=== PATIENT | male | born 1950 | race Caucasian/White ===

== ENCOUNTER 2016-08-05 00:48 | Inpatient (IN) | payer MEDICARE, MEDICAID ==
--- NOTE | 2016-08-05 01:02 | EDPRACDOC ---
- General Information Stated Complaint: RT EYE HEMORRHAGE Time Seen by Provider: 08/05/16 01:00 Information Source: Tissue Technician Mode Of Arrival: Ambulance Home Medications: Home Medications Albuterol Sulfate [Proair Hfa] 2 puff INH Q6H PRN 10/20/13 Paroxetine [Paxil] 20 mg PO BID 10/20/13 Lisinopril [Zestril] 5 mg PO HS 11/12/14 MetFORMIN (Immediate Release) [GLUCOPHAGE Immed Release] 1,000 mg PO BID(YOSEF) Metoprolol Tartrate [Lopressor] 25 mg PO BID 11/12/14 Glimepiride [Amaryl] 2 mg PO DAILY 11/25/15 Montelukast Sodium [Singulair] 10 mg PO DAILY 11/25/15 Ropinirole HCl [Requip] 0.5 mg PO TID 11/25/15 Alprazolam [Xanax] 0.5 mg PO Q6H PRN #120 tablet 11/30/15 Pregabalin [Lyrica] 100 mg PO TID #90 capsule 11/30/15 Potassium Chloride 20 meq PO DAILY #90 tablet.er 01/17/16 Acetaminophen Ex Str Tablet [TYLENOL EXTRA STRENGTH Tablet] 500 mg PO QAM Acetaminophen [Tylenol] 650 mg PO Q6H PRN 05/30/16 Albuterol Sulfate [Ventolin Hfa] 2 puff INH BID PRN 05/30/16 Albuterol/Ipratropium Neb [Duoneb] 3 ml NEB QID 05/30/16 Crotamiton [Eurax] 60 gm TP BID 05/30/16 Fexofenadine HCl [Roz] 180 mg PO DAILY 05/30/16 Guaifenesin [Robitussin] 200 mg PO BID PRN 05/30/16 Polyethylene Glycol 3350 [Miralax] 17 gm PO BID 05/30/16 Tobramycin/Dexamethasone [Tobradex] 2 drop OU QID 05/30/16 Trazodone HCl [Desyrel] 50 mg PO QHS 05/30/16 Aspirin (Enteric Coated) [Halfprin] 81 mg PO DAILY #90 tab 06/03/16 Furosemide [Lasix] 40 mg PO BID #120 tab 06/03/16 Levofloxacin [Levaquin] 750 mg PO DAILY #5 tablet 06/03/16 Prednisone 10 mg PO DAILY #30 tab.ds.pk 06/03/16 Allergies/Adverse Reactions: Allergies Allergy/AdvReac Type Severity Reaction Status Date / Time varenicline tartrate Allergy Intermediate Angioedema* Verified 05/30/16 16:36 [From Chantix] - History of Present Illness Exact Onset of Symptoms: Unknown HPI: EMS CALLED TO [facility] FOR RIGHT EYE BLEEDING. FALL A COUPLE OF WEEKS AGO, TOLD BLOOD BLISTER OF EYE THEN. EMS FOUND PT LETHARGIC. ON 3L NC USUALLY, BUT DUE TO CONFUSION OXYGEN INCREASED TO 6 L NC. ED Past Medical History - History Reviewed Yes Nurses notes reviewed and agree except as marked - Patient Medical History Cardiac History: Reports: Hypertension, Hypercholesterolemia. Denies: Congestive Heart Failure Respiratory History: Reports: COPD (Severe. On home O2.), Emphysema GI/ History: Reports: Gastroesophageal Reflux Musculoskeletal History: Reports: Arthritis Psychological History: Reports: Anxiety. Denies: Depression, Substance Use Disorder Systemic History: Reports: Diabetes (Type 2) Surgical History: Reports: Other (LEFT HAND, INTESTINES?) - Family Medical History Reports: Hypertension, Diabetes (father), Cancer (Brother) - Social Medical History Smoking Status: Heavy tobacco smoker (5 or more cigarettes/day or daily pipe/ cigar) Social History: Denies: Substance Use Disorder - Physical Exam Constitutional: Alert (Awake), No apparent distress Oriented to: Time, Person, Place Last recorded Vital Signs: Oxygen Pulse Oxygen Saturation O2 Device Oxygen Flow Rate Fraction of Inspired Oxygen ( FIO2) - HEENT Head: Normal ( normocephalic) Eye Exam: Normal (PERRL, EOMI, Sclera white), Other (RIGHT EYE ABLE TO FINGER COUNT. SOME DRIED BLOOD AROUND EYE. NO SOURCE OF BLEEDING IDENTIFIED.) Oropharynx: Normal (Pharynx:Moist without exudate,Gums-no swelling) Nose: No Symptoms Reported (septum midline) Neck: Normal (FROM, trachea at midline) - Respiratory/Cardiovascular Respiratory: Rhonchi, Wheezes (B/L) Cardiovascular: Normal (RRR without murmur, gallop or rub) - GI Auscultation: Normal (NABS) Palpation: Normal (Soft,No rebound or guarding, non distended) Tenderness: Non tender Rao's Sign: Negative - Musculoskeletal Back: Normal (Non-Tender) Extremities: Normal (Normal tone, Pulses 2+ No cyanosis or edema, FROM) - Integumentary Skin: Normal, Warm, Dry Lymphatics: Normal (no adenopathy) - Neurologic Memory Impaired: Normal Motor Function: Normal (Normal tone, Pulses 2+ No cyanosis or edema, FROM) Cranial Nerve: Normal (CN II-X11 intact sensation, strength 5/5) Cerebellar: Normal Mood Description: Normal Perception: Normal - Results 08/05/16 01:05 08/05/16 01:05 - EKG EKG #1 EKG Time: 01:06 -: Yes EKG interpreted by me Rate: bpm: 65 [place]: LAD Rhythm: NSR Block: RBBB (INCOMPLETE) ST: Normal Comments: ABNORMAL EKG Comparison: 05/30/16 (NO CHANGE) - Departure Yes I personally saw and evaluated the patient. Disposition: Admit IP To This Hospital Condition: Stable Final Diagnosis: Acute hypercapnic respiratory failure Altered mental state Qualifiers: Altered mental status type: disorientation Qualified Code(s): R41.0 - Disorientation, unspecified Bilateral pneumonia Qualifiers: Pneumonia type: due to unspecified organism Lung location: lower lobe of lung Qualified Code(s): J18.9 - Pneumonia, unspecified organism Decision to Admit Time: 02:16 Decision to admit date: 08/05/16 Decision to admit: from ED - Physician Consulted Hospitalist Time Called: 02:16 Provider Called: Sisi Russell Time Visiting Professor Returned Call: 02:16
[2016-08-05 01:13] LABS: ABG Draw Site Right Radial; ALLEN'S TEST PASS; BEb 9.6 (+/- 2); TCO2 40.5 MMOL/L (23-27)
[2016-08-05 01:14] LABS: ABG Draw Tech BKL
[2016-08-05 01:34] LABS: AUTOMATED EOSINOPHIL 3.2 % (0-5); AUTOMATED LYMPH 26.4 % (17-44); AUTOMATED MONOCYTE 9.1 % (3-10); AUTOMATED NEUTROPHIL 60.3 % (45-76); MPV 8.3 fL (7.4-10.4)
[2016-08-05] MEDS ORDERED: ALBUTEROL 0.083% 3 ML NEB NEB ONE (01:34)
[2016-08-05 01:39] LABS: BLOOD UREA NITROGEN 16 MG/DL (9-20); CALC CORRECTED 9.6 MG/DL (8.4-10.2); CALCIUM 9.1 MG/DL (8.4-10.2); CALCULATED OSMOLALITY 282 MOs/Kg (270-290); CHLORIDE 98 mEq/L (98-107); GLUCOSE 132 MG/DL (70-99); SODIUM LEVEL 145 mEq/L (137-146); TOTAL PROTEIN 6.5 G/DL (6.3-8.2)
--- NOTE | 2016-08-05 02:07 | DIRPT ---
CLINICAL DATA: Acute onset of altered mental status. Status post fall. Lethargy and shortness of breath. Initial encounter. EXAM: PORTABLE CHEST 1 VIEW COMPARISON: Chest radiograph performed 06/02/2016 FINDINGS: The lungs are well-aerated. Mild bibasilar opacities may reflect mild interstitial edema or pneumonia. Vascular congestion is noted. There is no evidence of significant pleural effusion or pneumothorax. The cardiomediastinal silhouette is enlarged. No acute osseous abnormalities are seen. Chronic right clavicular deformity is noted. IMPRESSION: Vascular congestion and cardiomegaly. Mild bibasilar opacities may reflect mild interstitial edema or pneumonia. Electronically Signed By: Héctor Au M.D. On: 08/05/2016 02:04
[2016-08-05 02:12] LABS: LEUKOCYTES/URINE NEG (NEGATIVE); NITRITE/URINE NEG (NEGATIVE); RBC/URINE 0-2 (0-2); URINE OCCULT BLOOD NEG (NEG/TRACE); WBC/URINE 0-2 (0-2)
[2016-08-05] MEDS ORDERED: PIPERACILLIN AND TAZOBACTAM 4.5 GM in D5W 100 ML IV ONE (02:13)
[2016-08-05] MEDS ORDERED: Levofloxacin 750 mg/150 ml D5W 750 MG/150 ML RTU IV ONE (02:14)
[2016-08-05] MEDS ORDERED: ACETAMINOPHEN 325 MG/TAB TABLET PO PRN (03:50)
[2016-08-05] MEDS ORDERED: GLUCOSE (ORAL GEL) 15 GM TUBE PO PRN (03:50)
[2016-08-05] MEDS ORDERED: Aluminum;Magnesium;Simethicone 30 ML UDC PO PRN (03:50)
[2016-08-05] MEDS ORDERED: BENZONATATE 100 MG PERLES PO PRN (03:50)
[2016-08-05] MEDS ORDERED: MAGNESIUM HYDROXIDE 30 ML BOTTLE PO PRN (03:50)
[2016-08-05] MEDS ORDERED: DEXTROSE 25 GM/50 ML PFS IV PRN (03:50)
[2016-08-05] MEDS ORDERED: TUSSIONEX 5 ML ORAL SYRINGE PO PRN (03:50)
[2016-08-05] MEDS ORDERED: GLUCAGON 1 MG VIAL SQ PRN (03:50)
[2016-08-05] MEDS ORDERED: PROMETHAZINE 25 MG/ML VIAL IV PRN (03:50)
[2016-08-05] MEDS ORDERED: SODIUM CHLORIDE 0.9% 3 ML FLUSH FLUSH PRN (03:50)
[2016-08-05] MEDS ORDERED: ALBUTEROL 0.083% 3 ML NEB NEB PRN (03:50)
--- NOTE | 2016-08-05 03:59 | HISTPHYS ---
- Chief Complaint Patient brought in by EMS due to blood blister on eye. - History of Present Illness 65-year-old man long history of CHRONIC OBSTRUCTIVE PULMONARY DISEASE with his 5th admission in 12 months for CHRONIC OBSTRUCTIVE PULMONARY DISEASE exacerbation presents to the emergency department. He was picked up by EMS at [facility] and his sats were noted to be in the low 80s on 3 L. His oxygen was turned up to 6 L and the patient is a CO2 retainer. On presentation here he was requiring BiPAP treatment. At the present time he is unconscious in's and not able to give any information. He is a do not resuscitate. There is an order in the chart that he is palliative care and should not go to the hospital yet here he is. - Medical History Cardiac History: Reports: Hypertension, Hypercholesterolemia. Denies: Congestive Heart Failure Respiratory History: Reports: COPD (Severe. On home O2.), Emphysema GI/ History: Reports: Gastroesophageal Reflux Musculoskeletal History: Reports: Arthritis Systemic History: Reports: Diabetes (Type 2) Psychological History: Reports: Anxiety. Denies: Depression, Substance Use Disorder - Surgical History Reports: Other (LEFT HAND, INTESTINES?) - Medictions/Allergies Allergies varenicline tartrate [From Chantix] Allergy (Intermediate, Verified 08/05/16 03: 01) Angioedema* Current Medication List: Reviewed Home Medications Acetaminophen 500 mg PO QAM 08/05/16 Acetaminophen [Arthritis Pain] 650 mg PO QID PRN 08/05/16 Albuterol/Ipratropium Neb [Duoneb] 3 ml NEB QID 08/05/16 Alprazolam [Xanax] 0.5 mg PO BID 08/05/16 Aspirin (Enteric Coated) [Ecotrin] 81 mg PO DAILY 08/05/16 Crotamiton [Eurax] 60 gm TP BID 08/05/16 Fexofenadine HCl [Roz] 180 mg PO DAILY 08/05/16 Furosemide [Lasix] 20 mg PO DAILY 08/05/16 Glimepiride [Amaryl] 2 mg PO DAILY 08/05/16 Guaifenesin 600 mg PO BID PRN 08/05/16 Guaifenesin [Humabid, Mucinex] 600 mg PO BID 08/05/16 Lisinopril 2.5 mg PO DAILY 08/05/16 Metformin HCl 1,000 mg PO BID 08/05/16 Metoprolol Tartrate 12.5 mg PO BID 08/05/16 Montelukast Sodium [Singulair] 10 mg PO DAILY 08/05/16 Morphine Sulfate/Pf [Morphine 0.5 mg/ml Ampul P-F] 0.5 mg PO BID 08/05/16 PEG-Electrolytes (Miralax) [Miralax] 17 gm PO BID 08/05/16 POTASSIUM CHLORIDE Tablet [Klor-Con M20] 20 meq PO DAILY 08/05/16 Paroxetine HCl [Paxil] 20 mg PO BID 08/05/16 Pregabalin [Lyrica] 100 mg PO TID 08/05/16 Ropinirole HCl [Requip] 0.5 mg PO TID 08/05/16 Tobramycin/Dexamethasone [Tobradex] 1 drops OD BID 08/05/16 Trazodone HCl [Desyrel] 50 mg PO QHS 08/05/16 - Family History Reports: Hypertension, Diabetes (father), Cancer (Brother) - Social History Travel Outside of [place] in the Last 3 Months?: No Lives: in [facility] Smoking Status: Heavy tobacco smoker (5 or more cigarettes/day or daily pipe/ cigar) Social History: Denies: Alcohol Use, Substance Use Disorder - Review of Systems Yes Review of systems cannot be obtained due to the patient's medical condition - Physical Exam Vital Signs: Initial Vitals Pulse Rate 66 08/05/16 00:55 Respiratory Rate 22 08/05/16 00:55 Blood Pressure 108/55 L 08/05/16 00:55 Pulse Oxygen Saturation 94 08/05/16 00:55 Constitutional: Somnolent (Comatose). negative: Well nourished, Well appearing Oriented to: Time, Person, Place - HEENT Head: Normal (normocephalic, atraumatic.), Other (No cervical lymphadenopathy. No supraclavicular lymphadenopathy. Neck: No palpable mass, supple , trachea midline.) Eye: Other (Blood blister on right eye with injection of eyelids) Oropharynx: Normal (Pharynx: Moist without exudate,Gums-no swelling, No oropharyngeal lesions or erythema, Mucous membranes are dry.) Nose: No Symptoms Reported (septum midline, Nares patent, without discharge or bleeding.) Respiratory: Diminished, Rales, Wheezes Cardiovascular: Normal (RRR , Normal S1, S2. No murmurs, rubs, or gallops. PMI non-displaced. Carotids: no carotid bruits. No bradycardia or tachycardia. DP pulses 2+ bilaterally.) - GI Auscultation: Normal (normal active sounds) Palpation: Other (Super morbidly obese) Tenderness: Non tender (No rebound or guarding) - Musculoskeletal Back: Normal (Non-Tender) Extremities: Edema - Integumentary Skin: Normal (Clean, dry, and intact. No rashes. No lesions.) Lymphatics: Normal (No cervical lymphadenopathy. No supraclavicular lymphadenopathy.) - Neurologic Memory Impaired: Unable to Test Motor Function: Unable to Test Cranial Nerve: Unable to Test Cerebellar: Unable to Test Mood Description: Other (Comatose) - Focused CV Perfusion Exam Vital Signs: Last Vital Signs Temp Pulse 65 08/05/16 02:47 Resp 20 08/05/16 02:47 BP 117/68 08/05/16 02:47 Pulse Ox 92 08/05/16 02:47 - Lab Results Laboratory Results - last 24 hr 08/05/16 08/05/16 08/05/16 01:05 01:05 01:05 WBC 6.9 RBC 4.53 L Hgb 14.5 Hct 43.1 MCV 95 H MCH 32.0 MCHC 33.6 RDW 14.9 H Plt Count 144 MPV 8.3 Neut % (Auto) 60.3 Lymph % (Auto) 26.4 Rice % (Auto) 9.1 Eos % (Auto) 3.2 Baso % (Auto) 1.0 Absolute Neuts (auto) 4.14 Absolute Lymphs (auto) 1.79 PT INR APTT Puncture Site Right radial pH 7.340 L pCO2 71.0 H* pO2 70.0 L HCO3 38.3 H Total CO2 40.5 H Base Excess 9.6 H FiO2 % 3 lpm Specimen Drawn By Bkl Sodium 145 Potassium 4.0 Chloride 98 Carbon Dioxide 39 H Anion Gap 12 BUN 16 Creatinine 0.80 Estimated GFR (MDRD) > 60 Glucose 132 H Calculated Osmolality 282 Calcium 9.1 Corrected Calcium 9.6 Total Bilirubin 0.4 AST 16 L ALT 27 Alkaline Phosphatase 78 Troponin I < 0.01 Yme-H-Xcxaqqwyhni Pept 101 Total Protein 6.5 Albumin 3.5 Urine Color Urine Clarity Urine pH Ur Specific [place] Urine Protein Urine Glucose (UA) Urine Ketones Urine Occult Blood Urine Nitrite Urine Bilirubin Urine Urobilinogen Ur Leukocyte Esterase Urine RBC Urine WBC Ur Epithelial Cells Urine Bacteria Urine Mucus 08/05/16 08/05/16 01:05 01:52 WBC RBC Hgb Hct MCV MCH MCHC RDW Plt Count MPV Neut % (Auto) Lymph % (Auto) Rice % (Auto) Eos % (Auto) Baso % (Auto) Absolute Neuts (auto) Absolute Lymphs (auto) PT 10.7 INR 1.0 APTT 24.0 Puncture Site pH pCO2 pO2 HCO3 Total CO2 Base Excess FiO2 % Specimen Drawn By Sodium Potassium Chloride Carbon Dioxide Anion Gap BUN Creatinine Estimated GFR (MDRD) Glucose Calculated Osmolality Calcium Corrected Calcium Total Bilirubin AST ALT Alkaline Phosphatase Troponin I Etm-U-Yvmenttevxy Pept Total Protein Albumin Urine Color Yellow Urine Clarity Clear Urine pH 5.0 Ur Specific [place] 1.010 Urine Protein Neg Urine Glucose (UA) Neg Urine Ketones Neg Urine Occult Blood Neg Urine Nitrite Neg Urine Bilirubin Neg Urine Urobilinogen 2 H Ur Leukocyte Esterase Neg Urine RBC 0-2 Urine WBC 0-2 Ur Epithelial Cells Occ Urine Bacteria Few Urine Mucus Occ - Diagnostic Findings Echocardiogram 07/11/15 CONCLUSIONS 1. This was a technically difficult study with suboptimal views due to COPD. Patient chose not to use Definity echo contrast. 2. There is moderate concentric left ventricular hypertrophy. 3. Overall left ventricular systolic function is normal with, an EF between 60 - 65 %. 4. The diastolic filling pattern indicates impaired relaxation. 5. The right ventricle is severely enlarged. Electronically Signed By: Nik Denny MD -- Electronically Signed On: 14:25:11 CC: 07/11/15 1426 PORTABLE CHEST 1 VIEW COMPARISON: Chest radiograph performed 06/02/2016 FINDINGS: The lungs are well-aerated. Mild bibasilar opacities may reflect mild interstitial edema or pneumonia. Vascular congestion is noted. There is no evidence of significant pleural effusion or pneumothorax. The cardiomediastinal silhouette is enlarged. No acute osseous abnormalities are seen. Chronic right clavicular deformity is noted. IMPRESSION: Vascular congestion and cardiomegaly. Mild bibasilar opacities may reflect mild interstitial edema or pneumonia. Electronically Signed By: Héctor Au M.D. On: 08/05/2016 02:04 EKG #1 EKG Time: 01:06 -: Yes EKG interpreted by me Rate: bpm: 65 [place]: LAD Rhythm: NSR Block: RBBB (INCOMPLETE) ST: Normal Comments: ABNORMAL EKG Comparison: 05/30/16 (NO CHANGE) personally veiwed by me - Assessment (1) Acute hypercapnic respiratory failure J96.02 - ACUTE RESPIRATORY FAILURE WITH HYPERCAPNIA Acute Present on Admission: Yes Admit for hypercarbic respiratory failure. Continue treatment with BiPAP. Monitor CO2 levels closely. (2) HCAP (healthcare-associated pneumonia) J18.9 - PNEUMONIA, UNSPECIFIED ORGANISM Acute Present on Admission: Yes Patient started on IV antibiotics and supplemental oxygen at low dose. His home oxygen dose is 3 L. being treated for suspected gram-negative pneumonia due to healthcare environment and multiple admissions to the hospital in the past year for respiratory problems. (3) Bilateral pneumonia J18.9 - PNEUMONIA, UNSPECIFIED ORGANISM Acute Present on Admission: Yes Qualifiers: Pneumonia type: due to unspecified organism Lung location: lower lobe of lung Qualified Code(s): J18.9 - Pneumonia, unspecified organism Likely bilateral gram-negative healthcare associated pneumonia. Continue treatment with Zosyn and Levaquin. (4) COPD with acute exacerbation J44.1 - CHRONIC OBSTRUCTIVE PULMONARY DISEASE W (ACUTE) EXACERBATION Acute Present on Admission: Yes Patient with acute hypercarbia due to long-standing CHRONIC OBSTRUCTIVE PULMONARY DISEASE and obstructive sleep apnea. (5) Diastolic CHF, acute on chronic I50.33 - ACUTE ON CHRONIC DIASTOLIC (CONGESTIVE) HEART FAILURE Acute Present on Admission: Yes Currently NPO except for meds will continue present care and check echocardiogram. Last echo is greater than a year ago (6) JEY (obstructive sleep apnea) G47.33 - OBSTRUCTIVE SLEEP APNEA (ADULT) (PEDIATRIC) Chronic Present on Admission: Yes Continue BiPAP (7) Comatose R40.20 - UNSPECIFIED COMA Acute Present on Admission: Yes Qualifiers: Coma depth: unspecified coma depth Coma timing: at hospital admission Qualified Code(s): R40.2443 - Other coma, without documented [place] coma scale score, or with partial score reported, at hospital admission Likely due to hypercarbic respiratory failure and obesity hypoventilation syndrome continue BiPAP treatment and get CO2 levels down. (8) Morbid obesity E66.01 - MORBID (SEVERE) OBESITY DUE TO EXCESS CALORIES Chronic Present on Admission: Yes Qualifiers: Obesity type: due to excess calories Qualified Code(s): E66.01 - Morbid ( severe) obesity due to excess calories Patient is morbidly obese. Encourage weight loss, this certainly exacerbated his obstructive sleep apnea and diabetes. (9) Type 2 diabetes mellitus treated without insulin E11.9 - TYPE 2 DIABETES MELLITUS WITHOUT COMPLICATIONS Chronic Present on Admission: Yes Check fingerstick blood glucoses q.6 hours while NPO and cover with sliding scale insulin treatments. - Plan Admit, BiPAP, get oxygen levels low. Chest x-ray consistent with congestive heart failure as is physical exam. Patient's BMP does not reflect congestive heart failure but he clearly has some diastolic issues. Start on Lasix q.12 hours. Due to the presence of and/or the risk of deterioration, my attendance to this patient required critical care time, including assessment/reassessment, documentation, ordering and interpreting ancillary studies, discussion with staff and consultants,patient and family, and excludes time spent on separately billable procedures. In summary, this patient is acutely and critically ill. The patient requires treatment of vital organ failure and measures to prevent further life-threatening deterioration of condition. Case Care Discussed with: Consultants (Dr. Fairbanks), Nursing Staff Total Time: 80 minutes Critical Care: Yes Couseling Time (>50% in counseling/coordination): No
[2016-08-05] MEDS ORDERED: TOBRAMYCIN OU SCH (04:00)
[2016-08-05] MEDS ORDERED: ENOXAPARIN 40 MG/0.4 ML PFS SQ SCH (04:00)
[2016-08-05] MEDS ORDERED: DEXAMETHASONE OU SCH (04:00)
[2016-08-05] MEDS: NS/KCl 20 mEq 1,000 ML IV SCH ×3 (04:54→20:13)
[2016-08-05] MEDS ORDERED: AZITHROMYCIN 500 MG in D5W 250 ML IV SCH (05:00)
[2016-08-05] MEDS: SODIUM CHLORIDE 0.9% 3 ML FLUSH FLUSH SCH ×2 (05:03→18:18)
[2016-08-05] MEDS: ROPINIROLE HCL 0.5 MG TABLET PO SCH ×3 (05:03→20:16)
[2016-08-05] MEDS: PREGABALIN 100 MG CAP PO SCH ×3 (05:03→20:13)
[2016-08-05] MEDS: GLIMEPIRIDE 2 MG TAB PO SCH (05:04)
[2016-08-05] MEDS: MetFORMIN 1000 MG IMMED REL TAB PO SCH ×2 (05:04→16:36)
[2016-08-05] MEDS: METHYLPREDNISOLONE 125 MG/2 ML VIAL IV SCH ×4 (05:07→23:09)
[2016-08-05] MEDS: REGULAR INSULIN 100 UNITS/ML - 3 ML VIAL SQ SCH ×3 (05:10→16:36)
[2016-08-05 05:11] LABS: ALLEN'S TEST PASS; BEb 8.3 (+/- 2)
[2016-08-05] MEDS: DEXAMETHASONE OU SCH ×5 (05:11→22:30)
[2016-08-05] MEDS: TOBRAMYCIN OU SCH ×5 (05:11→22:30)
[2016-08-05 05:12] LABS: ABG Draw Site Right Radial
[2016-08-05 05:13] LABS: ABG Draw Tech BKL
[2016-08-05] MEDS ORDERED: Vaccine Screening Complete SCH (06:00)
[2016-08-05] MEDS ORDERED: CEFTRIAXONE 1 GM in D5W 100 ML IV SCH (06:00)
[2016-08-05] MEDS ORDERED: ACETAMINOPHEN 500 MG PO SCH (09:00)
[2016-08-05] MEDS ORDERED: CROTAMITON TP SCH (09:00)
[2016-08-05] MEDS: Albuterol/Ipratropium Neb 3 ML NEB NEB SCH ×3 (09:08→20:06)
[2016-08-05 09:10] LABS: ALLEN'S TEST PASS; BEb 7.2 (+/- 2); TCO2 38.7 MMOL/L (23-27)
[2016-08-05 09:11] LABS: ABG Draw Site Left Radial
[2016-08-05] MEDS: FUROSEMIDE 40 MG/4 ML VIAL IV SCH ×2 (09:30→18:13)
[2016-08-05] MEDS: PIPERACILLIN AND TAZOBACTAM 3.375 GM in D5W 100 ML IV SCH ×3 (09:31→20:14)
[2016-08-05] MEDS: PEG-ELECTROLYTE 17 GM PACK PO SCH ×2 (09:32→20:16)
[2016-08-05] MEDS: PAROXETINE 20 MG TAB PO SCH ×2 (10:39→20:15)
[2016-08-05] MEDS: POTASSIUM CHLORIDE 20 MEQ TAB PO SCH ×2 (10:39→18:11)
[2016-08-05] MEDS: MONTELUKAST SODIUM 10 MG TAB PO SCH ×2 (10:39→18:11)
[2016-08-05] MEDS: FEXOFENADINE HCL 180 MG TAB PO SCH ×2 (10:39→18:11)
[2016-08-05] MEDS: METOPROLOL TARTRATE 25 MG TAB PO SCH ×2 (10:39→20:16)
[2016-08-05] MEDS: LISINOPRIL 2.5 MG TAB PO SCH ×2 (10:40→18:11)
[2016-08-05] MEDS: ALPRAZOLAM 0.5 MG TAB PO SCH ×2 (10:40→20:13)
[2016-08-05] MEDS: ACETAMINOPHEN 500 MG CAPLET PO SCH ×2 (10:40→18:11)
[2016-08-05 11:38] LABS: ALLEN'S TEST PASS; TCO2 37.7 MMOL/L (23-27)
[2016-08-05 11:40] LABS: ABG Draw Site Left Radial
[2016-08-05 11:41] LABS: BI-PAP 16/8 cm H2O
--- NOTE | 2016-08-05 16:10 | CAPUECHO ---
INDICATION: SOB HEIGHT: 177.8 cm (5 ft 10.0 in) WEIGHT: 118.8 kg (262.0 lbs) BP: 96/52 BSA: 2.268454 m MEASUREMENTS 2D RVIDd: 3.8 cm M-MODE IVSd: 1.3 cm LVIDd: 5.3 cm LVPWd: 1.3 cm LVIDs: 3.7 cm EF(Teich): 57 % Ao Diam: 3.1 cm LA Diam: 4.5 cm DOPPLER MV E Sam: 0.73 m/s MV A Sam: 0.97 m/s MV PHT: 70.21 ms MVA By PHT: 3.13 cm LVOT Vmax: 0.85 m/s AV Vmax: 1.54 m/s FINDINGS ------- Procedure:2D images, m-mode, color and spectral Doppler were obtained and reviewed. ECG rhythm:Sinus rhythm. Study quality:This was a technically difficult study with suboptimal views. Definity was not used (pt has refused in past) Left Ventricle:There is mild concentric left ventricular hypertrophy with normal contraction in thos e segments visualized. Overall left ventricular systolic function is normal with, an EF between 55 - 60 %. The diastolic filling pattern indicates impaired relaxation. Right Ventricle:The right ventricle is grossly normal in size and function. The RV was not well vi sualized. Left Atrium:The left atrium is mildly dilated. Right Atrium:The right atrial size is normal. Septum grossly normal Aortic Valve:The aortic valve is trileaflet with m ild aortic valve sclerosis, good mobility, no re gurgitation Mitral Valve:Normal appearing mitral valve. There is trace to mild mitral regurgitation. Tricuspid Valve:The tricuspid valve appears structurally normal. Trace tricuspid regurgitation pre sent, inadequate to estimate pulm artery pressure Pulmonic Valve:The pulmonic valve is normal. There is no pulmonic regurgitation present. Aorta:The aortic root is of normal dimension; the ascending aorta and aortic arch not well seen. IVC:Normal inferior vena cava with normal inspiratory collapse. Pericardium:There is no pericardial effusion. General comments:Previous study 07/15 CONCLUSIONS 1. mild concentric left ventricular hypertrophy with grossly normal systolic function, normal ejecti on fraction; impaired relaxation 2. trace/mild mitral regurg with mild left atrial dilatation. 3. preserved RV systolic function, only trace TR, inadequate to estimate pulm artery pressure 4. aortic sclerosis No change from previously reported findings of 2015. Electronically Signed By: Julián Lim MD-- Electronically Signed On: 16:00:04
[2016-08-05] MEDS: ENOXAPARIN 60 MG/0.6 ML PFS SQ SCH (18:14)
--- NOTE | 2016-08-05 18:44 | GENMEDPROG ---
Subjective Note: Patient in bed, acutely ill appearing. Visibly short of breath. On BiPAP. Sleepy but arousable and able to follow simple commands. Repeated ABGs continued to show CO2 retention.. Notes Reviewed: Yes Events from last night noted and discussed with Clinical Staff Current Medication List: Reviewed Currently: Reports: Cough, Wheezing, DELACRUZ, SOB, Sputum, Tobacco Use/Hx, Reflux Sx DVT Prophylaxis: Yes - Physical Examination Vital Signs and I&O: Last Vital Signs Temp 98.1 F 08/05/16 16:00 Pulse 81 08/05/16 17:57 Resp 30 H 08/05/16 18:25 BP 125/85 08/05/16 16:00 Pulse Ox 96 08/05/16 16:00 Oxygen Pulse Oxygen Saturation 96 O2 Device BiPAP Oxygen Flow Rate Fraction of Inspired Oxygen ( 30 FIO2) Intake & Output 08/02/16 08/03/16 08/04/16 08/05/16 23:59 23:59 23:59 23:59 Intake Total 200 Output Total 1625 Balance -1425 Patient's weight 122.697 kg General: Alert, Cooperative, Moderate distress, Weakness, Fatigue HEENT: Normal, PERRLA, EOMI, Anicteric Sclera Neck: Non-tender, Limited range of motion Lymphatics: Normal (No cervical lymphadenopathy. No supraclavicular lymphadenopathy.) Respiratory: Diminished, Rales, Rhonchi, Wheezes Cardiovascular: Regular rate, Normal S1, Normal S2, Murmurs GI: Normal bowel sounds, Soft, Non tender, No hepatospenomegaly, No masses, Obese Extremities/Musculoskeletal: Edema, Clubbing, Cyanosis Skin: Warm,Dry and Intact, No rashes, No breakdown, No significant lesion, Other (tatoos) Neurological: Normal speech, Normal tone, Cranial nerves 3-12 NL Psych/Mental Status: Anxious, Confused, Somnolent Lab/DI/Studies Reviewed: Allergies varenicline tartrate [From Chantix] Allergy (Intermediate, Verified 08/05/16 03: 01) Angioedema* Last Vital Signs Temp 98.1 F 08/05/16 16:00 Pulse 81 08/05/16 17:57 Resp 30 H 08/05/16 18:25 BP 125/85 08/05/16 16:00 Pulse Ox 96 08/05/16 16:00 08/05/16:05 08/05/16 01:05 Abnormal Lab Results 08/05/16 08/05/16 08/05/16 01:05 01:05 01:05 RBC 4.53 L MCV 95 H RDW 14.9 H pH 7.340 L pCO2 71.0 H* pO2 70.0 L HCO3 38.3 H Total CO2 40.5 H Base Excess 9.6 H Carbon Dioxide 39 H Glucose 132 H POC Capillary Glucose Hemoglobin A1c AST 16 L TSH Urine Urobilinogen 08/05/16 08/05/16 08/05/16 01:05 01:52 04:21 RBC MCV RDW pH pCO2 pO2 HCO3 Total CO2 Base Excess Carbon Dioxide Glucose POC Capillary Glucose Hemoglobin A1c 5.8 H AST TSH 0.36 L Urine Urobilinogen 2 H 08/05/16 08/05/16 08/05/16 05:00 05:08 09:06 RBC MCV RDW pH 7.330 L 7.300 L pCO2 70.0 H* 74.0 H* pO2 73.0 L 71.0 L HCO3 36.9 H 36.4 H Total CO2 39.0 H 38.7 H Base Excess 8.3 H 7.2 H Carbon Dioxide Glucose POC Capillary Glucose 148 H Hemoglobin A1c AST TSH Urine Urobilinogen 08/05/16 08/05/16 08/05/16 11:32 11:34 16:07 RBC MCV RDW pH pCO2 58.0 H pO2 63.0 L HCO3 35.9 H Total CO2 37.7 H Base Excess 9.0 H Carbon Dioxide Glucose POC Capillary Glucose 257 H 200 H Hemoglobin A1c AST TSH Urine Urobilinogen - Assessment (1) Acute hypercapnic respiratory failure Acute J96.02 - ACUTE RESPIRATORY FAILURE WITH HYPERCAPNIA Comment/Plan: Continue BiPAP. Monitor ABG. Adjust pressures as indicated. (2) Bilateral pneumonia Acute J18.9 - PNEUMONIA, UNSPECIFIED ORGANISM Qualifiers: Pneumonia type: due to unspecified organism Lung location: lower lobe of lung Qualified Code(s): J18.9 - Pneumonia, unspecified organism Comment/Plan: Continue broad-spectrum antibiotics and mucolytics. Monitor cultures. (3) COPD with acute exacerbation Acute J44.1 - CHRONIC OBSTRUCTIVE PULMONARY DISEASE W (ACUTE) EXACERBATION Comment/Plan: Continue nebulized bronchodilators and IV steroids. (4) Diastolic CHF, acute on chronic Acute I50.33 - ACUTE ON CHRONIC DIASTOLIC (CONGESTIVE) HEART FAILURE Comment /Plan: continue IV Lasix monitor fluid balance and weight. (5) Type 2 diabetes mellitus treated without insulin Chronic E11.9 - TYPE 2 DIABETES MELLITUS WITHOUT COMPLICATIONS Comment/Plan : Monitor blood sugar continue oral agents and sliding scale regular insulin. (6) Dyslipidemia Chronic E78.5 - HYPERLIPIDEMIA, UNSPECIFIED Comment/Plan: Continue Crestor (7) Hypertension Chronic I10 - ESSENTIAL (PRIMARY) HYPERTENSION Qualifiers: Hypertension type: essential hypertension Qualified Code(s): I10 - Essential (primary) hypertension Comment/Plan: BP under control, keep SBP around 140 Case Care Discussed with: Patient, Nursing Staff, Respiratory Therapy Education/Counseling Given To: Patient Education/Counseling Given Regarding: Diagnosis, Treatment, Prognosis, Follow Up Total Time: 55 min Critical Care: Yes Code: 291
[2016-08-05] MEDS: TRAZODONE 50 MG TAB PO SCH (20:16)
[2016-08-06] MEDS: REGULAR INSULIN 100 UNITS/ML - 3 ML VIAL SQ SCH ×5 (00:55→20:50)
[2016-08-06] MEDS: Albuterol/Ipratropium Neb 3 ML NEB NEB SCH ×4 (02:16→19:11)
[2016-08-06] MEDS: PIPERACILLIN AND TAZOBACTAM 3.375 GM in D5W 100 ML IV SCH ×4 (03:37→20:49)
[2016-08-06] MEDS: Levofloxacin 750 mg/150 ml D5W 750 MG/150 ML RTU IV SCH (04:45)
[2016-08-06] MEDS: NS/KCl 20 mEq 1,000 ML IV SCH ×3 (04:47→18:28)
[2016-08-06] MEDS: SODIUM CHLORIDE 0.9% 3 ML FLUSH FLUSH SCH ×2 (04:57→17:44)
[2016-08-06 05:05] LABS: ALLEN'S TEST PASS; BEb 10.4 (+/- 2); TCO2 39.2 MMOL/L (23-27)
[2016-08-06 05:06] LABS: ABG Draw Site Right Radial
[2016-08-06 05:07] LABS: ABG Draw Tech BKL; BI-PAP 16/8 cm H2O
[2016-08-06 05:24] LABS: MPV 8.4 fL (7.4-10.4)
[2016-08-06 05:38] LABS: BLOOD UREA NITROGEN 15 MG/DL (9-20); CALCULATED OSMOLALITY 284 MOs/Kg (270-290); CHLORIDE 98 mEq/L (98-107); GLUCOSE 214 MG/DL (70-99); SODIUM LEVEL 144 mEq/L (137-146)
[2016-08-06] MEDS: METHYLPREDNISOLONE 125 MG/2 ML VIAL IV SCH ×4 (06:12→20:48)
[2016-08-06] MEDS: MetFORMIN 1000 MG IMMED REL TAB PO SCH ×2 (06:13→17:44)
[2016-08-06] MEDS: TOBRAMYCIN OU SCH ×5 (06:13→20:49)
[2016-08-06] MEDS: PREGABALIN 100 MG CAP PO SCH ×3 (06:13→20:48)
[2016-08-06] MEDS: GLIMEPIRIDE 2 MG TAB PO SCH (06:13)
[2016-08-06] MEDS: DEXAMETHASONE OU SCH ×5 (06:13→20:49)
[2016-08-06] MEDS: ROPINIROLE HCL 0.5 MG TABLET PO SCH ×3 (06:13→20:48)
[2016-08-06 06:26] LABS: SEG NEUTROPHIL 85 % (45-76)
[2016-08-06] MEDS: PEG-ELECTROLYTE 17 GM PACK PO SCH ×2 (07:37→20:48)
[2016-08-06] MEDS: FUROSEMIDE 40 MG/4 ML VIAL IV SCH ×2 (07:37→17:43)
[2016-08-06] MEDS: POTASSIUM CHLORIDE 20 MEQ TAB PO SCH (07:39)
[2016-08-06] MEDS: ACETAMINOPHEN 500 MG CAPLET PO SCH (07:39)
[2016-08-06] MEDS: METOPROLOL TARTRATE 25 MG TAB PO SCH ×2 (07:39→20:48)
[2016-08-06] MEDS: MONTELUKAST SODIUM 10 MG TAB PO SCH (07:40)
[2016-08-06] MEDS: LISINOPRIL 2.5 MG TAB PO SCH (07:40)
[2016-08-06] MEDS: ALPRAZOLAM 0.5 MG TAB PO SCH ×2 (07:40→20:48)
[2016-08-06] MEDS: PAROXETINE 20 MG TAB PO SCH ×2 (07:40→20:47)
[2016-08-06] MEDS: FEXOFENADINE HCL 180 MG TAB PO SCH (07:40)
[2016-08-06] MEDS ORDERED: PNEUMOCOCCAL 0.5 ML VIAL IM ONE (08:00)
--- NOTE | 2016-08-06 08:02 | DIRPT ---
CLINICAL DATA: Respiratory tour stress EXAM: PORTABLE CHEST 1 VIEW COMPARISON: Portable chest x-ray of August 05, 2016 FINDINGS: The lungs remain hyperinflated. The lung markings are coarse in the right infrahilar region. The cardiac silhouette remains enlarged. The pulmonary vascularity is prominent centrally without evidence of cephalization. There is no definite pleural effusion. The mediastinum is normal in width. The observed bony thorax is unremarkable. There is an old fracture of the midshaft of the right clavicle. IMPRESSION: Persistent cardiomegaly and mild central pulmonary vascular prominence without definite cephalization. Atelectasis or infiltrate at the right lung base medially is more conspicuous today. Electronically Signed By: Maciej Cortes M.D. On: 08/06/2016 07:59
[2016-08-06] MEDS: MORPHINE SULFATE PO SCH ×2 (11:12→11:13)
[2016-08-06] MEDS: [UNRECOGNIZED DRUG - OTHER] PO SCH ×2 (11:12→11:13)
[2016-08-06] MEDS: MORPHINE 10 MG/0.5 ML ORAL SYRINGE PO SCH ×2 (12:13→17:46)
[2016-08-06] MEDS: NICOTINE 21 MG PATCH TOP SCH (17:44)
[2016-08-06] MEDS: ENOXAPARIN 60 MG/0.6 ML PFS SQ SCH (17:45)
--- NOTE | 2016-08-06 20:04 | GENMEDPROG ---
Subjective Note: Patient in chair responsive follows commands. Has minimal recollection of events from last couple days been in the hospital. Stays that overall breathing better. Still coughing producing fair amount thick sputum no hemoptysis. Compliant with BiPAP. Notes Reviewed: Yes Events from last night noted and discussed with Clinical Staff Current Medication List: Reviewed Currently: Reports: Cough, Wheezing, DELACRUZ, SOB, Sputum, Tobacco Use/Hx, Reflux Sx DVT Prophylaxis: Yes - Physical Examination Vital Signs and I&O: Last Vital Signs Temp 98.2 F 08/06/16 15:33 Pulse 78 08/06/16 19:13 Resp 18 08/06/16 19:13 BP 98/60 L 08/06/16 15:33 Pulse Ox 93 08/06/16 19:13 Oxygen Pulse Oxygen Saturation 93 O2 Device Nasal Cannula Oxygen Flow Rate 2 Fraction of Inspired Oxygen ( 30 FIO2) Intake & Output 08/03/16 08/04/16 08/05/16 08/06/16 23:59 23:59 23:59 23:59 Intake Total 200 2571 Output Total 0 1364 Balance -0190 -066 Patient's weight 122.697 kg 122.107 kg General: Alert, Cooperative, Moderate distress, Weakness, Fatigue HEENT: Normal, PERRLA, EOMI, Anicteric Sclera Neck: Non-tender, Limited range of motion Lymphatics: Normal (No cervical lymphadenopathy. No supraclavicular lymphadenopathy.) Respiratory: Diminished, Rales, Rhonchi, Wheezes Cardiovascular: Regular rate, Normal S1, Normal S2, Murmurs GI: Normal bowel sounds, Soft, Non tender, No hepatospenomegaly, No masses, Obese Extremities/Musculoskeletal: Edema, Clubbing, Cyanosis Skin: Warm,Dry and Intact, No rashes, No breakdown, No significant lesion, Other (tatoos) Neurological: Normal speech, Normal tone, Cranial nerves 3-12 NL Psych/Mental Status: Anxious, Confused, Somnolent Lab/DI/Studies Reviewed: Patient Name: [place] BLANK LOC: [facility] : 1950 AGE: 65 Order Date:08/05/16 Date of Service:01/15 Report # [id number] Ord Physician: Richard Torrez MD Exam # [id number] Emergency Physician: Jesus Fairbanks DO Exam(s): [id number] RAD/DG CHEST PORTABLE CLINICAL DATA: Respiratory tour stress EXAM: PORTABLE CHEST 1 VIEW COMPARISON: Portable chest x-ray of August 05, 2016 FINDINGS: The lungs remain hyperinflated. The lung markings are coarse in the right infrahilar region. The cardiac silhouette remains enlarged. The pulmonary vascularity is prominent centrally without evidence of cephalization. There is no definite pleural effusion. The mediastinum is normal in width. The observed bony thorax is unremarkable. There is an old fracture of the midshaft of the right clavicle. IMPRESSION: Persistent cardiomegaly and mild central pulmonary vascular prominence without definite cephalization. Atelectasis or infiltrate at the right lung base medially is more conspicuous today. Electronically Signed By: Maciej Cortes M.D. On: 08/06/2016 07:59 08/06/16 04:40 08/06/16 04:40 Abnormal Lab Results 08/06/16 08/06/16 08/06/16 00:19 04:40 04:40 RBC 4.56 L MCV 95 H MCH 32.1 H Seg Neuts % (Manual) 85 H Lymphocytes % (Manual) 12 L pCO2 pO2 HCO3 Total CO2 Base Excess Carbon Dioxide 40 H Glucose 214 H POC Capillary Glucose 183 H 08/06/16 08/06/16 08/06/16 05:00 05:10 17:03 RBC MCV MCH Seg Neuts % (Manual) Lymphocytes % (Manual) pCO2 59.0 H pO2 69.0 L HCO3 37.4 H Total CO2 39.2 H Base Excess 10.4 H Carbon Dioxide Glucose POC Capillary Glucose 219 H 113 H - Assessment (1) Acute hypercapnic respiratory failure Acute J96.02 - ACUTE RESPIRATORY FAILURE WITH HYPERCAPNIA Comment/Plan: Continue BiPAP. Continue aggressive pulmonary toilet. Monitor pulmonary status (2) Bilateral pneumonia Acute J18.9 - PNEUMONIA, UNSPECIFIED ORGANISM Qualifiers: Pneumonia type: due to unspecified organism Lung location: lower lobe of lung Qualified Code(s): J18.9 - Pneumonia, unspecified organism Comment/Plan: Chest x-ray confirmed right-sided pneumonia. Continue broad- spectrum antibiotics and mucolytics. Monitor cultures. Continue aggressive pulmonary toilet (3) COPD with acute exacerbation Acute J44.1 - CHRONIC OBSTRUCTIVE PULMONARY DISEASE W (ACUTE) EXACERBATION Comment/Plan: Continue nebulized bronchodilators and IV steroids. (4) Diastolic CHF, acute on chronic Acute I50.33 - ACUTE ON CHRONIC DIASTOLIC (CONGESTIVE) HEART FAILURE Comment /Plan: continue IV Lasix monitor fluid balance and weight. (5) Type 2 diabetes mellitus treated without insulin Chronic E11.9 - TYPE 2 DIABETES MELLITUS WITHOUT COMPLICATIONS Comment/Plan : Monitor blood sugar continue oral agents and sliding scale regular insulin. (6) Dyslipidemia Chronic E78.5 - HYPERLIPIDEMIA, UNSPECIFIED Comment/Plan: Continue Crestor (7) Hypertension Chronic I10 - ESSENTIAL (PRIMARY) HYPERTENSION Qualifiers: Hypertension type: essential hypertension Qualified Code(s): I10 - Essential (primary) hypertension Comment/Plan: BP under control, keep SBP around 140 Case Care Discussed with: Nursing Staff, Respiratory Therapy, [employer] Education/Counseling Given To: Patient Education/Counseling Given Regarding: Diagnosis, Treatment, Prognosis, Follow Up Total Time: 55 min . Critical Care: No Code: 62156 (12+)
[2016-08-06] MEDS: TRAZODONE 50 MG TAB PO SCH (20:47)
[2016-08-07] MEDS: Albuterol/Ipratropium Neb 3 ML NEB NEB SCH ×4 (01:47→20:32)
[2016-08-07] MEDS: MORPHINE 10 MG/0.5 ML ORAL SYRINGE PO SCH ×3 (03:27→17:59)
[2016-08-07] MEDS: PIPERACILLIN AND TAZOBACTAM 3.375 GM in D5W 100 ML IV SCH ×4 (03:27→20:18)
[2016-08-07 04:46] LABS: BLOOD UREA NITROGEN 21 MG/DL (9-20); CALCIUM 8.8 MG/DL (8.4-10.2); CALCULATED OSMOLALITY 277 MOs/Kg (270-290); CHLORIDE 98 mEq/L (98-107); GLUCOSE 203 MG/DL (70-99); SODIUM LEVEL 139 mEq/L (137-146)
[2016-08-07 05:06] LABS: ALLEN'S TEST PASS; TCO2 36.4 MMOL/L (23-27)
[2016-08-07] MEDS: Levofloxacin 750 mg/150 ml D5W 750 MG/150 ML RTU IV SCH (05:08)
[2016-08-07] MEDS: METHYLPREDNISOLONE 125 MG/2 ML VIAL IV SCH ×4 (05:08→20:20)
[2016-08-07 05:28] LABS: ABG Draw Site Right Radial; BI-PAP 16/8 cm H2O
[2016-08-07] MEDS: SODIUM CHLORIDE 0.9% 3 ML FLUSH FLUSH SCH ×2 (06:06→16:29)
[2016-08-07] MEDS: PREGABALIN 100 MG CAP PO SCH ×3 (06:10→20:17)
[2016-08-07] MEDS: GLIMEPIRIDE 2 MG TAB PO SCH (06:10)
[2016-08-07] MEDS: REGULAR INSULIN 100 UNITS/ML - 3 ML VIAL SQ SCH ×3 (06:10→17:58)
[2016-08-07] MEDS: MetFORMIN 1000 MG IMMED REL TAB PO SCH ×2 (06:10→17:57)
[2016-08-07] MEDS: ROPINIROLE HCL 0.5 MG TABLET PO SCH ×3 (06:10→20:18)
[2016-08-07] MEDS: DEXAMETHASONE OU SCH ×5 (06:12→20:20)
[2016-08-07] MEDS: TOBRAMYCIN OU SCH ×5 (06:12→20:20)
[2016-08-07] MEDS: FUROSEMIDE 40 MG/4 ML VIAL IV SCH ×2 (08:45→14:56)
[2016-08-07] MEDS: NS/KCl 20 mEq 1,000 ML IV SCH ×2 (08:45→20:22)
[2016-08-07] MEDS: POTASSIUM CHLORIDE 20 MEQ TAB PO SCH (08:46)
[2016-08-07] MEDS: MONTELUKAST SODIUM 10 MG TAB PO SCH (08:46)
[2016-08-07] MEDS: PAROXETINE 20 MG TAB PO SCH ×2 (08:46→20:18)
[2016-08-07] MEDS: METOPROLOL TARTRATE 25 MG TAB PO SCH ×2 (08:46→20:17)
[2016-08-07] MEDS: PEG-ELECTROLYTE 17 GM PACK PO SCH ×2 (08:46→20:16)
[2016-08-07] MEDS: ACETAMINOPHEN 500 MG CAPLET PO SCH (08:46)
[2016-08-07] MEDS: LISINOPRIL 2.5 MG TAB PO SCH (08:46)
[2016-08-07] MEDS: ALPRAZOLAM 0.5 MG TAB PO SCH ×2 (08:46→20:17)
[2016-08-07] MEDS: FEXOFENADINE HCL 180 MG TAB PO SCH (08:47)
--- NOTE | 2016-08-07 13:24 | GENMEDPROG ---
Subjective Note: Patient in chair responsive follows commands. Breathing better still coughing producing fair amount thick sputum. Compliant with HS BiPAP. Denies any pains Notes Reviewed: Yes Events from last night noted and discussed with Clinical Staff Current Medication List: Reviewed Currently: Reports: Cough, Wheezing, DELACRUZ, SOB, Sputum, Tobacco Use/Hx, Reflux Sx DVT Prophylaxis: Yes - Physical Examination Vital Signs and I&O: Last Vital Signs Temp 98 F 08/07/16 11:24 Pulse 64 08/07/16 12:00 Resp 16 08/07/16 11:24 BP 96/56 L 08/07/16 11:24 Pulse Ox 91 08/07/16 11:24 Oxygen Pulse Oxygen Saturation 91 O2 Device Nasal Cannula Oxygen Flow Rate 2 Fraction of Inspired Oxygen ( 30 FIO2) Intake & Output 08/04/16 08/05/16 08/06/16 08/07/16 23:59 23:59 23:59 23:59 Intake Total 200 2771 1396 Output Total 2 3895 1000 Balance -7615 -1220 396 Patient's weight 122.697 kg 122.107 kg 111.13 kg General: Alert, Cooperative, Moderate distress, Weakness, Fatigue HEENT: Normal, PERRLA, EOMI, Anicteric Sclera Neck: Non-tender, Normal Trachea alignment, Limited range of motion Lymphatics: Normal (No cervical lymphadenopathy. No supraclavicular lymphadenopathy.) Respiratory: Diminished, Rhonchi, Wheezes Cardiovascular: Regular rate, Normal S1, Normal S2, Murmurs GI: Normal bowel sounds, Soft, Non tender, No hepatospenomegaly, No masses, Obese Extremities/Musculoskeletal: Edema, Clubbing, Cyanosis Skin: Warm,Dry and Intact, No rashes, No breakdown, No significant lesion, Other (tatoos) Neurological: Normal speech, Normal tone, Cranial nerves 3-12 NL Psych/Mental Status: Anxious, Confused, Somnolent Lab/DI/Studies Reviewed: Allergies varenicline tartrate [From Chantix] Allergy (Intermediate, Verified 08/05/16 03: 01) Angioedema* Last Vital Signs Temp 98 F 08/07/16 11:24 Pulse 64 08/07/16 12:00 Resp 16 08/07/16 11:24 BP 96/56 L 08/07/16 11:24 Pulse Ox 91 08/07/16 11:24 01/06/17 04:40 08/07/16 03:46 - Assessment (1) Acute hypercapnic respiratory failure Acute J96.02 - ACUTE RESPIRATORY FAILURE WITH HYPERCAPNIA Comment/Plan: Slow progress on maximal pulmonary therapy. Continue BiPAP HS and p.r.n.. Monitor pulmonary status. (2) Bilateral pneumonia Acute J18.9 - PNEUMONIA, UNSPECIFIED ORGANISM Qualifiers: Pneumonia type: due to unspecified organism Lung location: lower lobe of lung Qualified Code(s): J18.9 - Pneumonia, unspecified organism Comment/Plan: Chest x-ray confirmed right-sided pneumonia. Continue broad- spectrum antibiotics and mucolytics. Monitor cultures. Continue aggressive pulmonary toilet (3) COPD with acute exacerbation Acute J44.1 - CHRONIC OBSTRUCTIVE PULMONARY DISEASE W (ACUTE) EXACERBATION Comment/Plan: Continue nebulized bronchodilators and IV steroids. (4) Diastolic CHF, acute on chronic Acute I50.33 - ACUTE ON CHRONIC DIASTOLIC (CONGESTIVE) HEART FAILURE Comment /Plan: continue IV Lasix monitor fluid balance and weight. (5) Type 2 diabetes mellitus treated without insulin Chronic E11.9 - TYPE 2 DIABETES MELLITUS WITHOUT COMPLICATIONS Comment/Plan : Monitor blood sugar continue oral agents and sliding scale regular insulin. (6) Dyslipidemia Chronic E78.5 - HYPERLIPIDEMIA, UNSPECIFIED Comment/Plan: Continue Crestor (7) Hypertension Chronic I10 - ESSENTIAL (PRIMARY) HYPERTENSION Qualifiers: Hypertension type: essential hypertension Qualified Code(s): I10 - Essential (primary) hypertension Comment/Plan: BP under control, keep SBP around 140 Case Care Discussed with: Patient, Nursing Staff, Respiratory Therapy, [employer] Education/Counseling Given To: Patient Education/Counseling Given Regarding: Diagnosis, Treatment, Prognosis, Follow Up Total Time: 45 min ,. Critical Care: No Code: 37657 (12+)
[2016-08-07] MEDS: NICOTINE 21 MG PATCH TOP SCH (14:48)
[2016-08-07] MEDS: ENOXAPARIN 60 MG/0.6 ML PFS SQ SCH (17:58)
[2016-08-07] MEDS: TRAZODONE 50 MG TAB PO SCH (20:20)
[2016-08-08] MEDS: REGULAR INSULIN 100 UNITS/ML - 3 ML VIAL SQ SCH ×4 (01:22→17:17)
[2016-08-08] MEDS: Albuterol/Ipratropium Neb 3 ML NEB NEB SCH ×4 (02:04→20:05)
[2016-08-08] MEDS: PIPERACILLIN AND TAZOBACTAM 3.375 GM in D5W 100 ML IV SCH ×2 (04:33→07:53)
[2016-08-08] MEDS: Levofloxacin 750 mg/150 ml D5W 750 MG/150 ML RTU IV SCH (04:33)
[2016-08-08] MEDS: MORPHINE 10 MG/0.5 ML ORAL SYRINGE PO SCH ×3 (04:33→17:34)
[2016-08-08 05:12] LABS: BLOOD UREA NITROGEN 27 MG/DL (9-20); CALCIUM 8.8 MG/DL (8.4-10.2); CALCULATED OSMOLALITY 277 MOs/Kg (270-290); CHLORIDE 97 mEq/L (98-107); GLUCOSE 200 MG/DL (70-99); SODIUM LEVEL 138 mEq/L (137-146)
[2016-08-08] MEDS: SODIUM CHLORIDE 0.9% 3 ML FLUSH FLUSH SCH ×2 (06:42→17:19)
[2016-08-08] MEDS: GLIMEPIRIDE 2 MG TAB PO SCH (06:43)
[2016-08-08] MEDS: ROPINIROLE HCL 0.5 MG TABLET PO SCH ×3 (06:43→22:22)
[2016-08-08] MEDS: PREGABALIN 100 MG CAP PO SCH ×3 (06:43→22:20)
[2016-08-08] MEDS: MetFORMIN 1000 MG IMMED REL TAB PO SCH ×2 (06:43→17:20)
[2016-08-08] MEDS: TOBRAMYCIN OU SCH ×5 (06:44→22:22)
[2016-08-08] MEDS: METHYLPREDNISOLONE 125 MG/2 ML VIAL IV SCH ×4 (06:44→22:22)
[2016-08-08] MEDS: DEXAMETHASONE OU SCH ×5 (06:44→22:22)
[2016-08-08] MEDS: PEG-ELECTROLYTE 17 GM PACK PO SCH ×2 (07:47→22:21)
[2016-08-08] MEDS: FUROSEMIDE 40 MG/4 ML VIAL IV SCH ×2 (07:47→17:16)
[2016-08-08] MEDS: FEXOFENADINE HCL 180 MG TAB PO SCH (07:48)
[2016-08-08] MEDS: MONTELUKAST SODIUM 10 MG TAB PO SCH (07:48)
[2016-08-08] MEDS: POTASSIUM CHLORIDE 20 MEQ TAB PO SCH (07:48)
[2016-08-08] MEDS: ALPRAZOLAM 0.5 MG TAB PO SCH ×2 (07:48→22:20)
[2016-08-08] MEDS: PAROXETINE 20 MG TAB PO SCH ×2 (07:48→22:21)
[2016-08-08] MEDS: ACETAMINOPHEN 500 MG CAPLET PO SCH (07:48)
[2016-08-08] MEDS: METOPROLOL TARTRATE 25 MG TAB PO SCH ×2 (07:52→22:20)
[2016-08-08] MEDS: LISINOPRIL 2.5 MG TAB PO SCH (07:52)
--- NOTE | 2016-08-08 09:01 | GENMEDPROG ---
Chief Complaint: COPD exacerbation, CHF Subjective Note: Doing well, resting comfortably this morning. Has no specific complaints. Still coughing a bit. Notes Reviewed: Yes Events from last night noted and discussed with Clinical Staff Current Medication List: Reviewed Currently: Reports: DELACRUZ, SOB, Sputum, Tobacco Use/Hx, Reflux Sx DVT Prophylaxis: Yes - Physical Examination Vital Signs and I&O: Last Vital Signs Temp 97.6 F 08/08/16 07:56 Pulse 62 08/08/16 08:17 Resp 18 08/08/16 07:56 BP 92/51 L 08/08/16 07:56 Pulse Ox 95 08/08/16 08:00 Oxygen Pulse Oxygen Saturation 95 O2 Device Nasal Cannula Oxygen Flow Rate 2 Fraction of Inspired Oxygen ( 30 FIO2) Intake & Output 08/06/16 08/07/16 08/08/16 08/09/16 06:59 06:59 06:59 06:59 Intake Total 865 3182 1759 Output Total 4516 6113 3389 [facility] -2009 -1093 -1622 Patient's weight 122.107 kg 111.13 kg 111.64 kg 111.64 kg General: Alert, Cooperative, Mild distress, Weakness, Fatigue HEENT: Normal, PERRLA, EOMI, Anicteric Sclera Neck: Non-tender, Normal Trachea alignment, Limited range of motion Lymphatics: Normal (No cervical lymphadenopathy. No supraclavicular lymphadenopathy.) Respiratory: Diminished, Rhonchi, Wheezes Cardiovascular: Regular rate, Normal S1, Normal S2, Murmurs GI: Normal bowel sounds, Soft, Non tender, No hepatospenomegaly, No masses, Obese Extremities/Musculoskeletal: Edema, Clubbing, Cyanosis Skin: Warm,Dry and Intact, No rashes, No breakdown, No significant lesion, Other (tatoos) Neurological: Normal speech, Normal tone, Cranial nerves 3-12 NL Psych/Mental Status: Cooperative. negative: Agitated, Anxious Lab/DI/Studies Reviewed: Laboratory Tests 08/08/16 08/08/16 03:34 05:54 Potassium 4.0 BUN 27 H Creatinine 0.70 POC Capillary Glucose 177 H - Assessment (1) Altered mental state Acute R41.82 - ALTERED MENTAL STATUS, UNSPECIFIED Qualifiers: Altered mental status type: disorientation Qualified Code(s): R41.0 - Disorientation, unspecified Comment/Plan: Seems to be improving, likely related to his fluid overload and infection. (2) Bilateral pneumonia Acute J18.9 - PNEUMONIA, UNSPECIFIED ORGANISM Qualifiers: Pneumonia type: due to unspecified organism Lung location: lower lobe of lung Qualified Code(s): J18.9 - Pneumonia, unspecified organism Comment/Plan: Chest x-ray confirmed right-sided pneumonia. Continue broad- spectrum antibiotics and mucolytics. Monitor cultures. Continue aggressive pulmonary toilet Right-sided consolidation was more prominent on the 6th, as such will recheck chest x-ray this morning. If improving and remains clinically stable, he may be ready for discharge from the hospital in the next day or so. (3) Type 2 diabetes mellitus treated without insulin Chronic E11.9 - TYPE 2 DIABETES MELLITUS WITHOUT COMPLICATIONS Comment/Plan : Monitor blood sugar continue oral agents and sliding scale regular insulin. (4) Acute on chronic respiratory failure with hypoxia and hypercapnia Acute J96.21 - ACUTE AND CHRONIC RESPIRATORY FAILURE WITH HYPOXIA; J96.22 - ACUTE AND CHRONIC RESPIRATORY FAILURE WITH HYPERCAPNIA Comment/Plan: Overall improving, hopefully will continue to improve be ready for [facility] back to [facility] facility in the next 24-48 hours. (5) COPD with acute exacerbation Acute J44.1 - CHRONIC OBSTRUCTIVE PULMONARY DISEASE W (ACUTE) EXACERBATION Comment/Plan: Continue nebulized bronchodilators and IV steroids. (6) Diastolic CHF, acute on chronic Acute I50.33 - ACUTE ON CHRONIC DIASTOLIC (CONGESTIVE) HEART FAILURE Comment /Plan: Patient was admitted to the hospital with fluid overload and evidence of CHF exacerbation. Echocardiogram was checked. Continue IV Lasix at this time, patient appears to be close to euvolemic.
[2016-08-08] MEDS: NS/KCl 20 mEq 1,000 ML IV SCH (10:46)
--- NOTE | 2016-08-08 14:34 | DIRPT ---
CLINICAL DATA: Pneumonia. Severe COPD exacerbation. EXAM: CHEST 2 VIEW COMPARISON: Chest x-rays dated 08/06/2016 and 08/05/2016. FINDINGS: Linear opacity at the right lung base is probably atelectasis. Suspect additional milder atelectasis at the left lung base. Lungs are hyperexpanded compatible with the given history of COPD. Cardiomediastinal silhouette is stable in size and configuration. Cardiomegaly is unchanged. Mild degenerative changes seen within the scoliotic thoracolumbar spine. No acute osseous abnormality. IMPRESSION: Linear opacities at the right lung base. This could be atelectasis or pneumonia, favor atelectasis. Hyperexpanded lungs compatible with given history of COPD. Cardiomegaly, stable. Electronically Signed By: Brock Suarez M.D. On: 08/08/2016 14:32
[2016-08-08] MEDS: NICOTINE 21 MG PATCH TOP SCH (17:15)
[2016-08-08] MEDS: ENOXAPARIN 60 MG/0.6 ML PFS SQ SCH (17:19)
[2016-08-08] MEDS: TRAZODONE 50 MG TAB PO SCH (22:21)
[2016-08-09] MEDS: REGULAR INSULIN 100 UNITS/ML - 3 ML VIAL SQ SCH ×4 (00:17→17:06)
[2016-08-09] MEDS: Albuterol/Ipratropium Neb 3 ML NEB NEB SCH ×3 (01:29→14:32)
[2016-08-09 04:58] LABS: BLOOD UREA NITROGEN 28 MG/DL (9-20); CALCIUM 9.3 MG/DL (8.4-10.2); CALCULATED OSMOLALITY 279 MOs/Kg (270-290); CHLORIDE 94 mEq/L (98-107); GLUCOSE 224 MG/DL (70-99); SODIUM LEVEL 138 mEq/L (137-146)
[2016-08-09 05:08] VITALS: BMI 35.2
[2016-08-09] MEDS: MORPHINE 10 MG/0.5 ML ORAL SYRINGE PO SCH ×3 (06:15→17:07)
[2016-08-09] MEDS: METHYLPREDNISOLONE 125 MG/2 ML VIAL IV SCH ×3 (06:15→16:19)
[2016-08-09] MEDS: Levofloxacin 750 mg/150 ml D5W 750 MG/150 ML RTU IV SCH (06:17)
[2016-08-09] MEDS: MetFORMIN 1000 MG IMMED REL TAB PO SCH ×2 (06:19→17:06)
[2016-08-09] MEDS: ROPINIROLE HCL 0.5 MG TABLET PO SCH ×2 (06:19→13:35)
[2016-08-09] MEDS: PREGABALIN 100 MG CAP PO SCH ×2 (06:19→13:35)
[2016-08-09] MEDS: GLIMEPIRIDE 2 MG TAB PO SCH (06:19)
[2016-08-09] MEDS: SODIUM CHLORIDE 0.9% 3 ML FLUSH FLUSH SCH ×2 (06:19→17:06)
[2016-08-09] MEDS: DEXAMETHASONE OU SCH ×4 (06:20→17:07)
[2016-08-09] MEDS: TOBRAMYCIN OU SCH ×4 (06:20→17:07)
[2016-08-09] MEDS: FUROSEMIDE 40 MG/4 ML VIAL IV SCH ×2 (08:33→17:08)
[2016-08-09] MEDS: POTASSIUM CHLORIDE 20 MEQ TAB PO SCH (08:36)
[2016-08-09] MEDS: FEXOFENADINE HCL 180 MG TAB PO SCH (08:36)
[2016-08-09] MEDS: METOPROLOL TARTRATE 25 MG TAB PO SCH (08:37)
[2016-08-09] MEDS: PEG-ELECTROLYTE 17 GM PACK PO SCH (08:37)
[2016-08-09] MEDS: MONTELUKAST SODIUM 10 MG TAB PO SCH (08:38)
[2016-08-09] MEDS: PAROXETINE 20 MG TAB PO SCH (08:38)
[2016-08-09] MEDS: LISINOPRIL 2.5 MG TAB PO SCH (08:38)
[2016-08-09] MEDS: ACETAMINOPHEN 500 MG CAPLET PO SCH (08:38)
[2016-08-09] MEDS: ALPRAZOLAM 0.5 MG TAB PO SCH (08:46)
--- NOTE | 2016-08-09 09:24 | PCM.DCS92 ---
- Final/Secondary Discharge Diagnosis (1) Altered mental state Acute R41.82 - ALTERED MENTAL STATUS, UNSPECIFIED disorientation R41.0 - Disorientation, unspecified Comment: Patient some altered mental status at the time of admission to the hospital. Likely related to his fluid overload and infection, as it has now improved and is back to baseline. (2) Bilateral pneumonia Acute J18.9 - PNEUMONIA, UNSPECIFIED ORGANISM Present on Admission: Yes due to unspecified organism lower lobe of lung J18.9 - Pneumonia, unspecified organism Comment: Chest x-ray confirmed right-sided pneumonia. Continue broad-spectrum antibiotics and mucolytics. Monitor cultures. Continue aggressive pulmonary toilet Right-sided consolidation was more prominent on the 6th, but on recheck with chest x-ray on the day prior to discharge from the hospital, it is much improved , now just with atelectasis versus pneumonia more likely called atelectasis. He has improved on Levaquin and Zosyn. Today, he will be discharged from the hospital to complete a total 5 day course of Levaquin. (3) Type 2 diabetes mellitus treated without insulin Chronic E11.9 - TYPE 2 DIABETES MELLITUS WITHOUT COMPLICATIONS Present on Admission: Yes Comment: Monitor blood sugar continue oral agents and sliding scale regular insulin. (4) Acute on chronic respiratory failure with hypoxia and hypercapnia Acute J96.21 - ACUTE AND CHRONIC RESPIRATORY FAILURE WITH HYPOXIA; J96.22 - ACUTE AND CHRONIC RESPIRATORY FAILURE WITH HYPERCAPNIA Comment: Much improved , tolerating room air ready for discharge back to [facility] today. (5) COPD with acute exacerbation Acute J44.1 - CHRONIC OBSTRUCTIVE PULMONARY DISEASE W (ACUTE) EXACERBATION Present on Admission: Yes Comment: Continue nebulized bronchodilators and IV steroids. (6) Diastolic CHF, acute on chronic Acute I50.33 - ACUTE ON CHRONIC DIASTOLIC (CONGESTIVE) HEART FAILURE Present on Admission: Yes Comment: Patient was admitted to the hospital with fluid overload and evidence of CHF exacerbation. Echocardiogram was checked. Patient responded well to IV Lasix, getting close to euvolemic. Will discharge home today on 7 more days of increased dose of p.o. Lasix. Discharge Condition: Stable New Prescriptions: Furosemide [Lasix] 40 mg PO DAILY #7 tablet Levofloxacin [Levaquin] 750 mg PO DAILY #3 tab Nicotine [Nicoderm] 21 mg TOP Q24H #30 pat Prednisone [Sterapred Ds] 10 mg PO DIR #21 pack Discharge Home Medication List Acetaminophen 500 mg PO QAM 08/05/16 [History Confirmed 08/05/16 Last Taken 11/15] Acetaminophen [Tylenol] 650 mg PO Q6H PRN 08/05/16 [History Confirmed 08/05/16 Last Taken Unknown] Albuterol Sulfate [Proair Hfa] 2 puff INH Q6H PRN 08/05/16 [History Confirmed Last Taken Unknown] Albuterol/Ipratropium Neb [Duoneb] 3 ml NEB QID 08/05/16 [History Confirmed 12/15 Last Taken 08/04/16] Alprazolam [Xanax] 0.5 mg PO BID 08/05/16 [History Confirmed 08/05/16 Last Taken 08/04/16] Aspirin (Enteric Coated) [Halfprin] 81 mg PO DAILY 08/05/16 [History Confirmed 08/05/16 Last Taken 08/04/16] Fexofenadine HCl [Roz] 180 mg PO DAILY 08/05/16 [History Confirmed 08/05/16 Last Taken 08/04/16] Glimepiride [Amaryl] 2 mg PO DAILY 08/05/16 [History Confirmed 08/05/16 Last Taken 08/04/16] Guaifenesin 600 mg PO BID PRN 08/05/16 [History Confirmed 08/05/16 Last Taken Unknown] Lisinopril 2.5 mg PO DAILY 08/05/16 [History Confirmed 08/05/16 Last Taken 08/04] Metformin HCl 1,000 mg PO BID 08/05/16 [History Confirmed 08/05/16 Last Taken ] Metoprolol Tartrate 12.5 mg PO BID 08/05/16 [History Confirmed 08/05/16 Last Taken 08/04/16] Montelukast Sodium [Singulair] 10 mg PO DAILY 08/05/16 [History Confirmed Last Taken 08/04/16] Morphine Sulfate 5 mg PO Q8H 08/05/16 [History Confirmed 08/05/16 Last Taken 12/15 00:00] Morphine Sulfate 20mg\Ml Solution 0.5 ml PO Q2H PRN 08/05/16 [History Confirmed 08/05/16 Last Taken Unknown] PEG-Electrolytes (Miralax) [Miralax] 17 gm PO BID 08/05/16 [History Confirmed Last Taken 08/04/16] POTASSIUM CHLORIDE Tablet [K-DUR 20 mEq Tablet*] 20 meq PO DAILY 08/05/16 [ History Confirmed 08/05/16 Last Taken 08/04/16] Paroxetine HCl [Paxil] 20 mg PO BID 08/05/16 [History Confirmed 08/05/16 Last Taken 08/04/16] Pregabalin [Lyrica] 100 mg PO TID 08/05/16 [History Confirmed 08/05/16 Last Taken 08/04/16] Ropinirole HCl [Requip] 0.5 mg PO TID 08/05/16 [History Confirmed 08/05/16 Last Taken 08/04/16] Tobramycin/Dexamethasone [Tobradex Ophth Susp] 1 drops OD BID 08/05/16 [History Confirmed 08/05/16 Last Taken 08/04/16] Trazodone HCl [Desyrel] 50 mg PO QHS 08/05/16 [History Confirmed 08/05/16 Last Taken 08/04/16] Furosemide [Lasix] 40 mg PO DAILY #7 tablet 08/09/16 [Rx Last Taken Unknown] Levofloxacin [Levaquin] 750 mg PO DAILY #3 tab 08/09/16 [Rx Last Taken Unknown] Nicotine [Nicoderm] 21 mg TOP Q24H #30 pat 08/09/16 [Rx Last Taken Unknown] Prednisone [Sterapred Ds] 10 mg PO DIR #21 pack 08/09/16 [Rx Last Taken Unknown] O2 Device: Nasal Cannula Diet at Discharge: Cardiac, Diabetic Activity: No Restrictions - DC Summary Notes HPI/Notes: This is a pleasant 65-year-old male who was a resident of a [facility] on was admitted to the hospital with hypoxia and confusion. Found to have CHF, fluid overload and associated right-sided pneumonia. He was treated with empiric IV antibiotics, as well as aggressive IV diuresis. He responded well to this, is ready for discharge home today on room air. Please see the hospital problems and discharge problems above for details of the hospital course including diagnostics and treatment. The plan of care including medications, prognosis, follow-up including alarm symptoms for which medical care should be sought were reviewed with the patient and any available family members/caretakers. The patient is agreeable to discharge today, and all questions were answered by me to their satisfaction. Hospital Course Note:: Discharge summary on patient named [place] BLANK admitted to [facility] on 08/05/16 by Sisi Russell MD. Date of discharge is []. Total Time: 41 - Physical Exam Vital Signs: Last Vital Signs Temp 97.7 F 08/09/16 08:00 Pulse 68 08/09/16 08:00 Resp 18 08/09/16 08:00 BP 117/76 08/09/16 08:00 Pulse Ox 95 08/09/16 08:00 Oxygen Pulse Oxygen Saturation 95 O2 Device Nasal Cannula Oxygen Flow Rate 2 Fraction of Inspired Oxygen ( 30 FIO2) Constitutional: No apparent distress, Alert. negative: Distress, Decreased Consciousness, Well nourished, Well appearing Oriented to: Time, Person, Place - HEENT Head: Normal (normocephalic, atraumatic.), Other (No cervical lymphadenopathy. No supraclavicular lymphadenopathy. Neck: No palpable mass, supple , trachea midline.) Oropharynx: Normal (Pharynx: Moist without exudate,Gums-no swelling, No oropharyngeal lesions or erythema, Mucous membranes are dry.) Nose: No Symptoms Reported (septum midline, Nares patent, without discharge or bleeding.) - Respiratory/Cardiovascular Respiratory: Diminished Cardiovascular: Normal (RRR , Normal S1, S2. No murmurs, rubs, or gallops. PMI non-displaced. Carotids: no carotid bruits. No bradycardia or tachycardia. DP pulses 2+ bilaterally.) - GI Auscultation: Normal (normal active sounds) Palpation: Other (Super morbidly obese) Tenderness: Non tender (No rebound or guarding) - Musculoskeletal Back: Normal (Non-Tender) Extremities: Edema (Much improved, now just trace edema) - Integumentary Lymphatics: Normal (No cervical lymphadenopathy. No supraclavicular lymphadenopathy.) - Neurologic Memory Impaired: Normal Cerebellar: Normal Mood Description: Normal
[2016-08-09] MEDS: NICOTINE 21 MG PATCH TOP SCH (16:16)
[2016-08-09 16:45] VITALS: BP 98/64; PULSE 67; TEMP 98.1
[2016-08-09] MEDS: ENOXAPARIN 60 MG/0.6 ML PFS SQ SCH (17:06)
== END 2016-08-09 17:22 | DRG 177 ==
LOC: ED 00:48 → PCU 03:50
PROVIDERS: ADMIT Hospitalist; ATTEND Internal Medicine
PROC: 039B3ZZ Drainage of Right Radial Artery, Percutaneous Approach (ICD-10-PCS; principal; 2016-08-05)
PROC: 5A09357 Assistance with Respiratory Ventilation, Less than 24 Consecutive Hours, Continuous Positive Airway Pressure (ICD-10-PCS; 2016-08-05)
DX: J15.6 Pneumonia due to other Gram-negative bacteria (principal); J96.21 Acute and chronic respiratory failure with hypoxia; I50.33 Acute on chronic diastolic (congestive) heart failure; J96.22 Acute and chronic respiratory failure with hypercapnia; J44.0 Chronic obstructive pulmonary disease with (acute) lower respiratory infection; J44.1 Chronic obstructive pulmonary disease with (acute) exacerbation; E66.2 Morbid (severe) obesity with alveolar hypoventilation; E11.9 Type 2 diabetes mellitus without complications; R41.0 Disorientation, unspecified; Z66 Do not resuscitate; I10 Essential (primary) hypertension; E78.00 Pure hypercholesterolemia, unspecified; Z99.81 Dependence on supplemental oxygen; K21.9 Gastro-esophageal reflux disease without esophagitis; M19.90 Unspecified osteoarthritis, unspecified site; F41.9 Anxiety disorder, unspecified; Z88.8 Allergy status to other drugs, medicaments and biological substances; Z79.899 Other long term (current) drug therapy; Z79.82 Long term (current) use of aspirin; F17.210 Nicotine dependence, cigarettes, uncomplicated; E78.5 Hyperlipidemia, unspecified; Z68.37 Body mass index [BMI] 37.0-37.9, adult
CPT/HCPCS: 36415; 36600; 71010; 71020; 80048; 80053; 81001; 82043; 82803; 82962; 83036; 83735; 83880; 84443; 84484; 85007; 85025; 85027; 85610; 85730; 87040; 87086; 90471; 90732; 93005; 93306; 94640; 94660; 96365; 96366; 96372; 98960; 99284; G0237; J0456; J0696; J1650; J1940; J1956; J2543; J2930; J3490; J7040; J7060; J7070; J7620